=== PATIENT | male | born 1950 | race Caucasian/White ===

== ENCOUNTER → 2022-12-23 | Outpatient (CLI) | payer MEDICARE | END | disposition home or self-care (01) | LOC: US 00:29 | PROVIDERS: ATTEND Physician Assistant | DX: R74.8 Abnormal levels of other serum enzymes (principal) ==

== ENCOUNTER 2025-03-08 17:55 | Emergency (ER) | payer MEDICARE, OTHER ==
[2025-03-08] MEDS ORDERED: SODIUM CHLORIDE 0.9% 1,000 ML IV ONE (19:50)
[2025-03-08 20:02] LABS: BASO # 0.1 10*3/uL (0.0-0.1); BASO % 1.7 % (0.0-1.0); EOS % 0.2 % (1.0-4.0); HEMATOCRIT 45.2 % (42.0-52.0); MEAN CELL VOLUME 83.4 fl (80.0-94.0); MEAN CORPUSCULAR HGB 29.3 pg (27.0-31.0); MEAN CORPUSCULAR HGB CONC 35.2 g/dl (33.0-37.0); MEAN PLATELET VOLUME 10.1 fl (9.6-12.3); MONO # 0.6 10*3/uL (0.1-1.0); MONO % 11.6 % (3.0-9.0); NEUT # 2.9 10*3/uL (2.3-7.9); NEUT % 60.3 % (47.0-73.0); PLATELET COUNT AUTOMATED 145 10*3/uL (130-400); RED BLOOD COUNT 5.42 10*6/uL (4.50-5.90); RED CELL DISTRI WIDTH 12.6 % (0-14.5); WHITE BLOOD COUNT 4.7 10*3/uL (4.8-10.8)
[2025-03-08 20:15] LABS: BILIRUBIN Negative (Negative); BLOOD Negative (Negative); CLARITY Clear (Clear); COLOR Dark Yellow (Yellow); GLUCOSE Negative (Negative); KETONE Negative (Negative); LEUKO ESTERASE Negative (Negative); NITRITE Negative (Negative); PH 6.5 (4.5-8.0)
[2025-03-08 20:23] LABS: BACTERIA 1+; MUCOUS 1+
[2025-03-08 20:26] LABS: ALKALINE PHOSPHATASE 63 U/L (46-116); BUN 21 mg/dl (9-23); CHLORIDE 92 mmol/L (98-107); POTASSIUM 2.8 mmol/L (3.4-5.1); SGPT/ALT 97 U/L (5-49); TOTAL PROTEIN 6.9 gm/dL (6.0-8.0)
[2025-03-08] MEDS ORDERED: POTASSIUM CHLORIDE 20 MEQ TAB PO ONE (20:30)
[2025-03-08] MEDS ORDERED: POTASSIUM CHLO20 ME3 PO (21:34)
== END 2025-03-08 21:43 | disposition home or self-care (01) ==
LOC: ED 17:55
PROVIDERS: Nurse Practitioner Family
DX: B34.9 Viral infection, unspecified (principal); Z20.822 Contact with and (suspected) exposure to COVID-19; E87.6 Hypokalemia; I25.10 Atherosclerotic heart disease of native coronary artery without angina pectoris; I10 Essential (primary) hypertension; J45.909 Unspecified asthma, uncomplicated; Z98.890 Other specified postprocedural states; Z88.0 Allergy status to penicillin

== ENCOUNTER 2025-03-10 17:21 | Inpatient (IN) | payer MEDICARE, OTHER ==
[~2025-03-10] VITALS: Ht 171.4 cm; Wt 78.1 kg
[~2025-03-10 17:21] MED LIST: POTASSIUM CHLO20 ME3 PO
[2025-03-10 17:43] VITALS: BP 122/63
[2025-03-10] MEDS ORDERED: ROSUVASTATIN CA10 MG PO (17:44)
[2025-03-10] MEDS ORDERED: ARNUITY ELLIP100 MCG INH (17:44)
[2025-03-10] MEDS ORDERED: METOPROLOL SUCC50 M1 PO (17:44)
[2025-03-10] MEDS ORDERED: ASPIRIN CHEWABL81 MG PO (17:45)
[2025-03-10] MEDS ORDERED: CHLORTHALIDONE50 MG PO (17:45)
[2025-03-10] MEDS ORDERED: POTASSIUM CHLO10 ME5 PO (17:45)
[2025-03-10] MEDS ORDERED: SODIUM CHLORIDE 0.9% 1,000 ML IV ONE ×2 (17:55→22:00)
[2025-03-10] MEDS ORDERED: IOHEXOL 300 MG/ML 100 ML VIAL IV ONE (18:00)
[2025-03-10 18:19] LABS: BASO # 0.1 10*3/uL (0.0-0.1); BASO % 0.7 % (0.0-1.0); EOS % 0.1 % (1.0-4.0); HEMATOCRIT 41.2 % (42.0-52.0); MEAN CELL VOLUME 85.3 fl (80.0-94.0); MEAN PLATELET VOLUME 10.1 fl (9.6-12.3); MONO # 0.6 10*3/uL (0.1-1.0); MONO % 7.7 % (3.0-9.0); NEUT # 5.9 10*3/uL (2.3-7.9); NEUT % 78.6 % (47.0-73.0); PLATELET COUNT AUTOMATED 183 10*3/uL (130-400); RED BLOOD COUNT 4.83 10*6/uL (4.50-5.90); WHITE BLOOD COUNT 7.6 10*3/uL (4.8-10.8)
[2025-03-10 18:40] LABS: ALKALINE PHOSPHATASE 56 U/L (46-116); BUN 16 mg/dl (9-23); CHLORIDE 96 mmol/L (98-107); LIPASE 41 U/L (12-53); POTASSIUM 3.6 mmol/L (3.4-5.1); SGPT/ALT 91 U/L (5-49); TOTAL PROTEIN 6.4 gm/dL (6.0-8.0)
[2025-03-10] MEDS ORDERED: ACETAMINOPHEN 325 MG TAB PO ONE (19:05)
[2025-03-10] MEDS ORDERED: BISACODYL 10 MG SUPP R PRN (21:50)
[2025-03-10] MEDS ORDERED: Acetaminophen/Hydrocodone 5 MG/325 MG TABLET PO PRN (21:50)
[2025-03-10] MEDS ORDERED: Ondansetron Hydrochloride 4 MG/2 ML VIAL IV PRN (21:50)
[2025-03-10] MEDS ORDERED: ACETAMINOPHEN 325 MG TAB PO PRN (21:50)
[2025-03-10] MEDS ORDERED: Magnesium Hydroxide 30 ML UDC PO PRN (21:50)
[2025-03-10] MEDS ORDERED: BISACODYL 5 MG TAB PO PRN (21:50)
[2025-03-10] MEDS ORDERED: ACETAMINOPHEN 650 MG SUPP R PRN (21:50)
[2025-03-10] MEDS ORDERED: MORPHINE Sulfate 2 MG/ML SYR IV PRN (21:50)
[2025-03-10] MEDS ORDERED: Pantoprazole Sodium 40 MG TAB PO PRN (21:55)
[2025-03-10 23:20] VITALS: BP 134/59
[2025-03-11 05:41] LABS: ALKALINE PHOSPHATASE 56 U/L (46-116); BUN 15 mg/dl (9-23); CHLORIDE 96 mmol/L (98-107); CHOLESTEROL 80 mg/dL (<200); FREE T4 1.22 ng/dl (0.89-1.76); POTASSIUM 3.3 mmol/L (3.4-5.1); SGPT/ALT 89 U/L (5-49); TRIGLYCERIDES 172 mg/dl (<150)
[2025-03-11 05:44] LABS: LDL CHOLESTEROL 34 mg/dL (9-159)
[2025-03-11 05:56] LABS: BASO # 0.1 10*3/uL (0.0-0.1); BASO % 0.9 % (0.0-1.0); EOS % 0.1 % (1.0-4.0); HEMATOCRIT 38.8 % (42.0-52.0); MEAN CELL VOLUME 85.3 fl (80.0-94.0); MEAN CORPUSCULAR HGB 29.2 pg (27.0-31.0); MEAN CORPUSCULAR HGB CONC 34.3 g/dl (33.0-37.0); MEAN PLATELET VOLUME 10.6 fl (9.6-12.3); MONO # 0.7 10*3/uL (0.1-1.0); MONO % 9.4 % (3.0-9.0); NEUT # 4.8 10*3/uL (2.3-7.9); PLATELET COUNT AUTOMATED 192 10*3/uL (130-400); RED BLOOD COUNT 4.55 10*6/uL (4.50-5.90); RED CELL DISTRI WIDTH 13.2 % (0-14.5); WHITE BLOOD COUNT 7.8 10*3/uL (4.8-10.8)
[2025-03-11 08:00] VITALS: BP 105/54
[2025-03-11 08:45] LABS: VITAMIN D, 25-HYDROXY 61.1 ng/mL (30-100)
[2025-03-11] MEDS ORDERED: ASPIRIN, CHEWABLE 81 MG TAB PO SCH (10:00)
[2025-03-11] MEDS ORDERED: METOPROLOL SUCCINATE XR 50 MG TAB PO SCH (10:00)
[2025-03-11] MEDS ORDERED: Enoxaparin Sodium 40 MG/0.4 ML SYR SC SCH (10:00)
[2025-03-11] MEDS ORDERED: CHLORTHALIDONE 25 MG TAB PO SCH (10:00)
[2025-03-11 12:00] VITALS: BP 110/52
[2025-03-11] MEDS ORDERED: Potassium Phosphate, Monobas 500 MG TAB PO SCH (12:00)
[2025-03-11] MEDS ORDERED: IBUPROFEN 400 MG TAB PO ONE (15:25)
[2025-03-11 16:00] VITALS: BP 126/61
[2025-03-11] MEDS ORDERED: Doxycycline Hyclate 100 MG in SODIUM CHLORIDE 0.9% 250 ML IV SCH (16:30)
[2025-03-11 20:00] VITALS: BP 111/56
[2025-03-11 22:00] VITALS: BP 111/51
[2025-03-11] MEDS ORDERED: ATORVASTATIN CALCIUM 20 MG TAB PO SCH (22:00)
[2025-03-12] MEDS ORDERED: Vancomycin Hydrochloride 1,000 MG in SODIUM CHLORIDE 0.9% 250 ML IV SCH ×2 (00:50→16:00)
[2025-03-12] MEDS ORDERED: VANCOMYCIN HCL 1,500 MG in SODIUM CHLORIDE 0.9% 500 ML IV ONE (01:30)
[2025-03-12] MEDS ORDERED: Meropenem 2 GM in SODIUM CHLORIDE 0.9% 100 ML IV SCH (02:00)
[2025-03-12 04:16] LABS: BASO # 0.1 10*3/uL (0.0-0.1); BASO % 0.6 % (0.0-1.0); HEMATOCRIT 34.9 % (42.0-52.0); MEAN CELL VOLUME 84.9 fl (80.0-94.0); MEAN CORPUSCULAR HGB 28.7 pg (27.0-31.0); MEAN CORPUSCULAR HGB CONC 33.8 g/dl (33.0-37.0); MONO # 0.6 10*3/uL (0.1-1.0); MONO % 6.4 % (3.0-9.0); NEUT # 6.5 10*3/uL (2.3-7.9); NEUT % 74.2 % (47.0-73.0); PLATELET COUNT AUTOMATED 167 10*3/uL (130-400); RED BLOOD COUNT 4.11 10*6/uL (4.50-5.90); RED CELL DISTRI WIDTH 13.5 % (0-14.5); WHITE BLOOD COUNT 8.8 10*3/uL (4.8-10.8)
[2025-03-12 04:39] LABS: ALKALINE PHOSPHATASE 54 U/L (46-116); BUN 17 mg/dl (9-23); CHLORIDE 98 mmol/L (98-107); POTASSIUM 2.9 mmol/L (3.4-5.1); SGPT/ALT 98 U/L (5-49); TOTAL PROTEIN 5.6 gm/dL (6.0-8.0)
[2025-03-12] MEDS ORDERED: POTASSIUM CHLORIDE 20 MEQ TAB PO ONE ×2 (07:20→11:15)
[2025-03-12 08:00] VITALS: BP 104/63
[2025-03-12] MEDS ORDERED: Meropenem 1 GM VIAL IV ONE (08:34)
[2025-03-12] MEDS ORDERED: Vancomycin Hydrochloride 500 MG VIAL IV ONE (08:34)
[2025-03-12] MEDS ORDERED: SODIUM CHLORIDE 0.9% 100 ML BAG IV ONE (08:34)
[2025-03-12] MEDS ORDERED: SODIUM CHLORIDE 0.9% 500 ML BAG IV ONE (08:34)
[2025-03-12] MEDS ORDERED: Vancomycin Hydrochloride 1,000 MG VIAL IV ONE (08:34)
[2025-03-12] MEDS ORDERED: Meropenem 1 GM in SODIUM CHLORIDE 0.9% 100 ML IV SCH ×2 (10:00→10:30)
[2025-03-12] MEDS ORDERED: Doxycycline Hyclate 100 MG in SODIUM CHLORIDE 0.9% 250 ML IV SCH (10:00)
[2025-03-12 12:00] VITALS: BP 136/79
[2025-03-12 16:00] VITALS: BP 106/62
[2025-03-12 20:00] VITALS: BP 134/65
[2025-03-12] MEDS ORDERED: Doxycycline Hyclate 100 MG CAPSULE PO SCH (22:00)
[2025-03-13] VITALS: BP 120/64
[2025-03-13 05:07] LABS: ALKALINE PHOSPHATASE 52 U/L (46-116); BUN 15 mg/dl (9-23); CHLORIDE 97 mmol/L (98-107); POTASSIUM 3.4 mmol/L (3.4-5.1); SGPT/ALT 84 U/L (5-49); TOTAL PROTEIN 5.8 gm/dL (6.0-8.0)
[2025-03-13 06:23] LABS: HEMATOCRIT 36.1 % (42.0-52.0); MEAN CELL VOLUME 85.5 fl (80.0-94.0); MEAN CORPUSCULAR HGB 29.4 pg (27.0-31.0); MEAN CORPUSCULAR HGB CONC 34.3 g/dl (33.0-37.0); MEAN PLATELET VOLUME 10.5 fl (9.6-12.3); RED BLOOD COUNT 4.22 10*6/uL (4.50-5.90); RED CELL DISTRI WIDTH 13.8 % (0-14.5); WHITE BLOOD COUNT 8.6 10*3/uL (4.8-10.8)
[2025-03-13 06:25] LABS: MANUAL DIFF REFLEX YES; PLATELET COUNT AUTOMATED 236 10*3/uL (130-400)
[2025-03-13 06:44] LABS: ATYPICAL LYMPHS 4 % (0-0); BASOPHILS 2 % (0-1); TOTAL CELLS COUNTED 100 #CELLS
[2025-03-13 06:45] LABS: PLATELET SUFFICIENCY NORMAL (NORMAL)
[2025-03-13 08:00] VITALS: BP 118/68; BP 125/48
[2025-03-13] MEDS ORDERED: VANCOMYCIN1 GM/2502 IV (11:39)
[2025-03-13] MEDS ORDERED: MEROPENEM-1 GM/50 ML IV (11:39)
[2025-03-13] MEDS ORDERED: FLORASTOR250 MG PO (11:40)
[2025-03-13] MEDS ORDERED: Vibra-Tab100 MG PO ×2 (11:41→21:26)
[2025-03-13 12:00] VITALS: BP 133/69
[2025-03-13 16:00] VITALS: BP 105/60
[2025-03-13 20:00] VITALS: BP 141/66
[2025-03-13] MEDS ORDERED: AMOX-CLAV 875-1 EACH PO (21:26)
[2025-03-14] VITALS: BP 126/69
[2025-03-14] MEDS ORDERED: Vancomycin Hydrochloride 1,000 MG in SODIUM CHLORIDE 0.9% 250 ML IV SCH
[2025-03-14 06:34] LABS: ALKALINE PHOSPHATASE 54 U/L (46-116); BUN 14 mg/dl (9-23); CHLORIDE 99 mmol/L (98-107); POTASSIUM 3.2 mmol/L (3.4-5.1); SGPT/ALT 133 U/L (5-49); TOTAL PROTEIN 6.2 gm/dL (6.0-8.0)
[2025-03-14 06:38] LABS: HEMATOCRIT 38.8 % (42.0-52.0); MEAN CELL VOLUME 85.5 fl (80.0-94.0); MEAN CORPUSCULAR HGB 29.3 pg (27.0-31.0); MEAN CORPUSCULAR HGB CONC 34.3 g/dl (33.0-37.0); MEAN PLATELET VOLUME 9.8 fl (9.6-12.3); RED BLOOD COUNT 4.54 10*6/uL (4.50-5.90); WHITE BLOOD COUNT 8.1 10*3/uL (4.8-10.8)
[2025-03-14 06:40] LABS: MANUAL DIFF REFLEX YES; PLATELET COUNT AUTOMATED 313 10*3/uL (130-400)
[2025-03-14] MEDS ORDERED: POTASSIUM CHLORIDE 20 MEQ TAB PO ONE (07:40)
[2025-03-14 08:00] VITALS: BP 136/66
[2025-03-14 08:04] LABS: ATYPICAL LYMPHS 5 % (0-0); TOTAL CELLS COUNTED 100 #CELLS
[2025-03-14 08:05] LABS: PLATELET SUFFICIENCY NORMAL (NORMAL); POLYCHROMASIA SLIGHT
[2025-03-16 22:06] LABS: HISTOPLASMA MYCLIAL AB Negative (Neg:<1:2); HISTOPLASMA YEAST AB Negative (Neg:<1:2)
== END 2025-03-14 11:45 | disposition home or self-care (01) | DRG 866 ==
LOC: ED 17:21 → 4E 21:15 → EDHOLD 21:15 → 4E 22:27
PROVIDERS: Internal Medicine Infectious Disease; Physician Assistant Medical; Student in an Organized Health Care Education/Training Program; ADMIT Internal Medicine; ATTEND Internal Medicine
DX: B34.9 Viral infection, unspecified (principal); E87.1 Hypo-osmolality and hyponatremia; R17 Unspecified jaundice; E87.20 Acidosis, unspecified; E83.39 Other disorders of phosphorus metabolism; Z20.822 Contact with and (suspected) exposure to COVID-19; M48.061 Spinal stenosis, lumbar region without neurogenic claudication; J45.20 Mild intermittent asthma, uncomplicated; E27.9 Disorder of adrenal gland, unspecified; E87.8 Other disorders of electrolyte and fluid balance, not elsewhere classified; R91.1 Solitary pulmonary nodule; R73.9 Hyperglycemia, unspecified; R74.01 Elevation of levels of liver transaminase levels; E78.2 Mixed hyperlipidemia; I10 Essential (primary) hypertension; I25.10 Atherosclerotic heart disease of native coronary artery without angina pectoris; E87.6 Hypokalemia; K57.90 Diverticulosis of intestine, part unspecified, without perforation or abscess without bleeding; Z83.3 Family history of diabetes mellitus; Z82.49 Family history of ischemic heart disease and other diseases of the circulatory system; Z83.6 Family history of other diseases of the respiratory system; Z88.0 Allergy status to penicillin; Z79.899 Other long term (current) drug therapy; Z87.891 Personal history of nicotine dependence; Z95.5 Presence of coronary angioplasty implant and graft